=== PATIENT | male | born 1965 | race Caucasian/White ===

== ENCOUNTER 2023-12-24 03:55 | Outpatient (CLI) | payer MEDICAID | END 2023-12-24 23:59 | disposition critical access hospital (66) | LOC: EMS 03:55 | DX: R10.84 Generalized abdominal pain (principal); M54.9 Dorsalgia, unspecified; R30.9 Painful micturition, unspecified; R31.9 Hematuria, unspecified; R11.2 Nausea with vomiting, unspecified | CPT/HCPCS: A0425; A0427; A0999 ==

== ENCOUNTER 2023-12-24 04:21 | Emergency (ER) | payer MEDICAID, OTHER ==
[2023-12-24] MEDS ORDERED: iohexoL-300 100 ML VIAL ONE (04:30)
--- NOTE | 2023-12-24 04:31 | ED Physician Documentation ---
History of Present Illness - Stated complaint Stated Complaint: RT ABD PAIN - History obtained from History obtained from: Patient - Additonal information Additional information: 58-year-old man with past medical history of bilateral kidney stones presents with right lower quadrant pain radiating to the right flank and nonbloody nonbilious nausea and vomiting starting tonight. He called EMS and they gave 30 of IV Toradol 150 of fentanyl and 700 cc of normal saline without relief of pain. He is still nauseous as well. denies fever, dysuria or increased frequency. PD ED PE NORMAL - Vitals Vital signs reviewed: Yes - General General: Alert and oriented X 3, Well developed/nourished, Other (Writhing in bed, uncomfortable appearing) - HEENT HEENT: Atraumatic, PERRL, EOMI - Neck Neck: Supple, no meningeal sign - Cardiac Cardiac: RRR - Respiratory Respiratory: No respiratory distress, Clear bilaterally - Abdomen Abdomen: Non tender, Non distended, Other (Right lower quadrant discomfort to palpation) - Back Back: Other (Right CVA tender to palpation) - Derm Derm: Normal color, Warm and dry PD Medical Decision Making - ED course ED course: 58-year-old man presents with renal colic. Plan to obtain CT abdomen and pelvis to evaluate further. IV Dilaudid provided with relief of pain. Patient also received IV Zofran with improvement in nausea and a liter of normal saline. Plan to follow-up outpatient urology. Return precautions given. Departure - Departure Clinical Impression: Renal colic Condition: Stable Instructions: ED Stone Renal W Colic Comments: You were seen in the emergency department for Kidney stones. Please follow-up with your Urologist and return to the emergency department if you have any new or worsening symptoms or other concerns.
[2023-12-24 04:33] LABS: BASOPHILS % (AUTO) 0.4 %; EOSINOPHILS # (AUTO) 0.3 10^3/uL (0.0-0.7); EOSINOPHILS % (AUTO) 3.4 %; HCT - HEMATOCRIT 37.5 % (42.0-52.0); HGB - HEMOGLOBIN 12.9 g/dL (14.0-18.0); LYMPHOCYTES # (AUTO) 1.9 10^3/uL (1.5-3.5); LYMPHOCYTES % (AUTO) 25.3 %; MEAN CORPUSCULAR HEMOGLOBIN 31.5 pg (27.0-31.0); MEAN CORPUSCULAR HGB CONC 34.4 g/dL (32.0-36.0); MEAN CORPUSCULAR VOLUME 91.5 fL (80.0-94.0); MEAN PLATELET VOLUME 9.5 fL (7.4-11.4); MONOCYTES # (AUTO) 0.8 10^3/uL (0.0-1.0); NEUTROPHILS # (AUTO) 4.6 10^3/uL (1.5-6.6); NEUTROPHILS % (AUTO) 60.8 %; PLT - PLATELET COUNT 185 10^3/uL (130-450); RED CELL DISTRIBUTION WIDTH 11.9 % (12.0-15.0); WHITE BLOOD COUNT 7.6 x10^3/uL (4.8-10.8)
[2023-12-24] MEDS: ONDANSETRON 4 MG/2 ML VIAL IVP STA (04:43)
[2023-12-24] MEDS: HYDROmorphone 1 MG/ML CARPUJECT IVP STA ×2 (04:45→05:38)
[2023-12-24] MEDS: SODIUM CHLORIDE 0.9% 1,000 ML IV STA ×2 (04:47→05:48)
[2023-12-24 04:51] LABS: BILIRUBIN,TOTAL 0.5 mg/dL (0.2-1.0); CALCIUM 8.8 mg/dL (8.5-10.3); POTASSIUM 3.6 mmol/L (3.5-4.5)
[2023-12-24] MEDS: iohexoL-300 100 ML VIAL IVP ONE (05:08)
[2023-12-24 05:47] LABS: BILIRUBIN,URINE NEGATIVE (NEGATIVE); GLUCOSE, URINE (UA) NEGATIVE (NEGATIVE); KETONES,URINE (UA) NEGATIVE (NEGATIVE); LEUKOCYTE ESTERASE, URINE NEGATIVE (NEGATIVE); NITRITE,URINE NEGATIVE (NEGATIVE); OCCULT BLOOD,URINE LARGE (NEGATIVE); PH,URINE 6.5 PH (5.0-7.5); PROTEIN,URINE TRACE mg/dL (NEGATIVE); UROBILINOGEN,URINE 0.2 (NORMAL) E.U./dL (NORMAL)
[2023-12-24 05:55] LABS: CLARITY,URINE CLEAR (CLEAR)
[2023-12-24 05:58] LABS: BACTERIA,URINE None Seen /HPF (None Seen); MUCUS,URINE Few Strands; RBC,URINE TNTC /HPF (0-5); SQUAMOUS EPITHELIAL CELL,UR RARE Squamous (<= Few); WBC,URINE 0-3 /HPF (0-3)
[2023-12-24 07:14] VITALS: BP 118/71; O2SAT 98
--- NOTE | 2023-12-24 08:15 | CT Report ---
PROCEDURE: Abdomen/Pelvis W INDICATIONS: RLQ/R flank pain, hx kid stones CONTRAST: OMNI 300, 100mls TECHNIQUE: After the administration of intravenous contrast, a CT scan of the abdomen and pelvis was performed. Images were recorded and evaluated at appropriate window settings. Reformats: coronal and sagittal. F or radiation dose reduction, the following was used: automated exposure control, adjustment of mA and /or kV according to patient size. COMPARISON: None. FINDINGS: Image quality: Diagnostic Lower chest: Lung bases are unremarkable Liver: Possible steatosis Gallbladder and biliary system: Unremarkable, nondilated Pancreas: No ductal dilation Spleen: Nonenlarged Adrenals: No discrete nodules Kidneys: Scattered presumed cysts. No complicated or solid lesion identified. Right renal pelvis ston e measures 7 mm, with mild upstream dilation inflammatory changes. Nonobstructing left lower pole 6 mm stone. Vessels and lymph nodes: Main portal vein is patent. No abdominal aortic aneurysm or pathologic lymph nodes by size criteria. Bowel and peritoneum: No evidence of small bowel obstruction or pathologic ascites. Nondilated append ix. Body wall: Small fat-containing umbilical hernia Pelvis: Bladder is unremarkable. Fluid attenuation within the anterior thigh muscles measuring up to 4.4 cm. Prostate is not well eval on this study, mildly heterogeneously enhancing Bones: Degenerative changes. Lumbosacral fusion hardware. IMPRESSION: 7 mm right renal pelvis stone without upstream dilation. Mild surrounding inflammatory changes, corre late urinalysis for any superimposed infection. Other findings as above. Nondilated appendix. No significant discrepancy from prelim report. Reviewed by: Baron Quintanilla MD on 12/24/2023 8:14 AM PDT Approved by: Baron Quintanilla MD on 12/24/2023 8:14 AM PDT Station ID: [id number]
== END 2023-12-24 07:06 | disposition home or self-care (01) ==
LOC: ED 04:21
DX: N23 Unspecified renal colic (principal)
CPT/HCPCS: 36415; 74177; 80053; 81001; 83690; 85025; 96361; 96374; 96375; 96376; 99284; J1170; Q9967; 81003; 87086